=== PATIENT | male | born 1965 | race Two or more races ===

== ENCOUNTER 2021-08-19 16:10 | Emergency (ER) | payer MEDICAID, OTHER ==
[~2021-08-19] VITALS: Ht 172.7 cm; Wt 99.8 kg
[2021-08-19 17:35] VITALS: BP 128/81
[2021-08-19] MEDS ORDERED: TDAP [DIPH/PERTUSSIS/TET] 0.5 ML VIAL IM ONE ×2 (18:00→18:22)
[2021-08-19] MEDS ORDERED: LIDOCAINE HCL/PF 1% 30 ML VIAL TP ONE (18:00)
[2021-08-19] MEDS ORDERED: BACI/NEOM/POLY B OINT PKT 1 UDPKT PACKET TP ONE (18:00)
[2021-08-19] MEDS ORDERED: LIDOCAINE HCL/MPF 1% 30 ML VIAL IJ ONE (18:22)
[2021-08-19] MEDS ORDERED: BACI/NEOM/POLY B OINT PKT 1 UDPKT PACKET ONE (18:22)
[2021-08-19] MEDS ORDERED: IBUPROFEN 600 MG TABLET PO ONE (18:30)
[2021-08-19] MEDS ORDERED: IBUPROFEN 600 MG TABLET ONE (18:39)
[2021-08-19] MEDS ORDERED: ACETAMINOPHEN ES 500 MG TABLET ONE (18:42)
--- NOTE | 2021-08-19 18:45 | NUR ---
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
[2021-08-19] MEDS ORDERED: CEPH500T PO (18:53)
[2021-08-19] MEDS ORDERED: ACETAMINOPHEN 325 MG TABLET PO ONE (19:00)
--- NOTE | 2021-08-19 19:05 | NUR ---
Patient discharged to home in stable condition. Wound care done. Written and verbal after care instructions given. Patient verbalizes understanding of instruction.
== END 2021-08-19 19:10 | disposition home or self-care (01) ==
LOC: ER 16:58
DX: S61.012A Laceration without foreign body of left thumb without damage to nail, initial encounter (principal); I10 Essential (primary) hypertension; E11.9 Type 2 diabetes mellitus without complications; E78.00 Pure hypercholesterolemia, unspecified; Z79.899 Other long term (current) drug therapy; W26.8XXA Contact with other sharp object(s), not elsewhere classified, initial encounter; Y93.89 Activity, other specified; Y92.89 Other specified places as the place of occurrence of the external cause; Y99.8 Other external cause status
CPT/HCPCS: 12001; 73130; 90471; 90715; 99283; J3490 ×2

== ENCOUNTER 2021-08-26 15:48 | Emergency (ER) | payer OTHER ==
[~2021-08-26] VITALS: Ht 172.7 cm; Wt 99.8 kg
[~2021-08-26 15:48] MED LIST: CEPH500T PO
[2021-08-26 15:55] VITALS: BP 135/81
== END 2021-08-26 19:49 | disposition home or self-care (01) ==
LOC: ER 15:51
DX: Z48.02 Encounter for removal of sutures (principal); S61.012D Laceration without foreign body of left thumb without damage to nail, subsequent encounter; E78.00 Pure hypercholesterolemia, unspecified; E11.22 Type 2 diabetes mellitus with diabetic chronic kidney disease; I12.9 Hypertensive chronic kidney disease with stage 1 through stage 4 chronic kidney disease, or unspecified chronic kidney disease; N18.30 Chronic kidney disease, stage 3 unspecified; Z79.899 Other long term (current) drug therapy; X58.XXXD Exposure to other specified factors, subsequent encounter